=== PATIENT | male | born 1970 | race Caucasian/White ===

== ENCOUNTER 2018-05-09 12:04 | Emergency (ER) | payer OTHER ==
--- NOTE | 2018-05-09 13:11 | EDPHY ---
H & P Time Seen by Provider: 05/09/18 12:16 HPI/ROS: This patient reports a 2 day history of URI symptoms consisting of nasal congestion, sore throat of moderate intensity with odynophagia, and a dry hacking cough. He has associated mild wheeze. Finally, he reports right eye discharge and redness. He came in by private vehicle for evaluation of the symptoms. He has had no significant relief from [id number] medications. ROS: Constitutional: No high fevers or chills. HEENT: No sinus pain. No ear pain. Pulmonary: No pleuritic pain or hemoptysis. Cardiovascular: No complaints GI: No nausea vomiting or abdominal pain Integumentary: No skin rash 10 point review of symptoms is performed and otherwise negative with exception of pertinent positives and negatives listed in HPI and ROS Smoking Status: Never smoked Physical Exam: Physical Exam Vital signs are normal. General: No acute distress HEENT: Nose: Clear discharge bilaterally. No sinus tenderness to percussion. Ears: External canals and tympanic membranes are clear with no erythema or abnormal findings bilaterally. Oropharynx: Mild erythema bilaterally without exudates. No dysphonia. No drooling or stridor. Eyes: Pupils equal and react to light. Extraocular motions are intact. Neck: Supple with no meningismus. No lymphadenopathy Lungs: Clear to auscultation bilaterally with no rales, rhonchi or wheeze. No respiratory distress. Cardiac: Regular rate and rhythm with no murmur gallop or rub Skin: No rash or pallor. Neuro: Alert with no focal deficits noted. Initial differential diagnosis: URI with cough, influenza, strep pharyngitis Constitutional: Initial Vital Signs Temperature (C) 37.1 C 05/09/18 12:12 Heart Rate 75 05/09/18 12:12 Respiratory Rate 18 05/09/18 12:12 Blood Pressure 132/85 H 05/09/18 12:12 O2 Sat (%) 96 05/09/18 12:12 O2 Delivery Mode Room Air Allergies/Adverse Reactions: acetaminophen [From Vicodin] Allergy (Verified 05/09/18 12:11) hydrocodone bitartrate [From Vicodin] Allergy (Verified 05/09/18 12:11) Home Medications: Medication Instructions Recorded Omeprazole [Prilosec 20 mg] 20 mg PO DAILY 03/04/12 Albuterol Hfa Anes Only [Proair 2 puffs IH Q4 PRN #1 mdi 05/09/18 Hfa Icu (*)] Fluticasone Nasal [Flonase Nasal 2 sprays NASAL DAILY #1 mdi 05/09/18 [place] (RX)] Viibryd 05/09/18 MDM/Departure - MDM Diagnostics: Rapid strep is negative Rapid flu is negative ED Course/Re-evaluation: Patient's findings are consistent with viral URI with cough. We ruled out influenza and strep with negative rapid POC testing. I counseled patient regarding viral URI with cough. Given faint expiratory wheeze will prescribe a albuterol inhaler to use if needed as he reports he has had some wheezing with previous upper respiratory of infections in the past. He may have an element of RAD. Will also prescribe Flonase. I recommended ibuprofen in addition. He will follow up with his primary care physician for any symptoms that persist beyond the next week and understands need to return emergency department should he developed difficulty breathing despite treatment plan or other concerns. - Depart Disposition: Home, Routine, Self-Care Clinical Impression: Viral upper respiratory tract infection with cough Condition: Good Instructions: Upper Respiratory Infection (ED) Additional Instructions: Diagnosis: Viral upper respiratory infection with cough Plan: Humidifier Flonase steroid nasal spray Albuterol inhaler if needed for cough, wheeze or shortness of breath Ibuprofen for sinus pressure sore throat as needed. Symptoms should improve over the next 5-7 days. Follow up primary care physicians for symptoms that persist beyond that duration of time. Return if he develops difficulty breathing, or other concerns. Prescriptions: Albuterol Hfa Anes Only [Proair Hfa Icu (*)] 2 puffs IH Q4 PRN #1 mdi PRN Reason: Wheezing Fluticasone Nasal [Flonase Nasal [place] (RX)] 2 sprays NASAL DAILY #1 mdi Referrals: Deepak Mark MD [Primary Care Provider] - As per Instructions
[2018-05-09 13:37] VITALS: BP 112/77
== END 2018-05-09 13:38 | disposition home or self-care (01) ==
LOC: CED 12:04
DX: J06.9 Acute upper respiratory infection, unspecified (principal)
CPT/HCPCS: 99284-ER

== ENCOUNTER 2018-06-19 11:14 | Emergency (ER) | payer OTHER | END 2018-06-19 12:38 | disposition home or self-care (01) | LOC: CED 11:14 ==